=== PATIENT | female | born 1940 | race Caucasian/White ===

== ENCOUNTER 2016-03-30 05:58 | Observation (INO) | payer MEDICARE ==
[~2016-03-30] VITALS: Ht 172.7 cm; Wt 81.7 kg
[~2016-03-30 05:58] MED LIST: DIAZ10 PO; FISH1000 PO; FLUO10CA5 PO; FOSA70TA PO; LEVO-168 PO; MULT-135 PO; NAPR500 PO; NITR1CAP37 PO; OMEP20TA PO; RED RICE YEAST PO
[2016-03-30] MEDS ORDERED: METOPROLOL TARTRATE 25 MG TAB PO PRN (06:30)
[2016-03-30] MEDS ORDERED: INSULIN HUMAN REGULAR 1,000 UNITS/10 ML VIAL SQ PRN (06:30)
[2016-03-30] MEDS: SODIUM CHLORID 0.9% 500 ML IV SCH ×2 (06:30→22:10)
[2016-03-30] MEDS ORDERED: LEVO75TA3 PO (06:37)
[2016-03-30] MEDS ORDERED: AMLO2.5T PO (06:37)
[2016-03-30] MEDS ORDERED: HYDR-3516 PO (06:37)
[2016-03-30] MEDS ORDERED: GABA100C4 PO (06:37)
[2016-03-30] MEDS ORDERED: TRAM50TA PO (06:41)
[2016-03-30] MEDS ORDERED: PANT40TA3 PO (06:41)
[2016-03-30] MEDS ORDERED: TRAZ50TA12 PO (06:41)
[2016-03-30] MEDS: LACTATED RINGER'S 1000 ML IV SCH ×2 (06:42→22:10)
[2016-03-30] MEDS: CHLORHEXIDINE GLUCONATE 4% SOLN 120 ML BTL TOP SCH ×2 (06:45→12:25)
[2016-03-30] MEDS ORDERED: VANCOMYCIN 1000 MG/NS 250 ML (for <70 kg) IV SCH ×2 (06:45)
[2016-03-30] MEDS ORDERED: ceFAZolin 2 GM PREMIX 50 ML IV SCH (06:45)
[2016-03-30 06:47] VITALS: BP 155/90; PULSE 79; RESP 20; TEMP 97.7; O2SAT 97
[2016-03-30] MEDS ORDERED: GENTAMICIN SULFATE 80 MG/2 ML VIAL ONE (06:56)
[2016-03-30] MEDS ORDERED: FAMOTIDINE 20 MG/2 ML VIAL ONE (07:13)
[2016-03-30] MEDS ORDERED: ACETAMINOPHEN 1000 MG/100 ML VIAL IV ONE (07:13)
[2016-03-30] MEDS ORDERED: WALKER/ADULT/FO1 MIS (07:55)
[2016-03-30] MEDS ORDERED: HYDR-3288 PO (07:55)
[2016-03-30] MEDS ORDERED: XARE10TA PO (07:55)
--- NOTE | 2016-03-30 08:40 | PD.OP ---
cc: Basil Valencia MD Operative Report Date of Surgery: Mar 30, 2016 Preoperative Diagnosis: Right distal tibia fracture Postoperative Diagnosis: Procedure: Open reduction internal fixation right distal tibia Anesthesia: Gen. Surgeon: Basil Valencia Manager Automotive(s): KIM Morrow PA-C The surgical procedure was assisted by my physician retail loan originator assistant. My P.A. presence was necessary throughout this case for the manipulation and positioning of the surgical extremity. My P.A. was assisting me throughout the duration of this procedure. The skill set of a physician retail loan originator assistant was medically necessary to complete this procedure. During the surgical case the optics technical officer was working at the back table and the physician retail loan originator assistant was directly assisting me. Operation and Findings: Jany sustained an injury approximately 6 days ago resulting in displaced right distal tibia fracture. Patient was seen and evaluated preoperatively. The risk and benefits of surgery were discussed in depth with patient. All questions were answered. Skin was examined and found to be suitable for surgery. Patient had only mild swelling. Operative site was marked. She was brought to operating room. She is given IV sedation and GETA. Timeout procedure was performed. She received IV antibiotics. Right leg was prepped with alcohol followed by Hibiclens and draped usual sterile fashion. Procedure began with a 4 inch incision over the medial aspect of the right distal tibia. Subcutaneous tissues dissected with Bovie. Saphenous vein was protected throughout the procedure. Fracture was visualized. Fracture was cleaned with curettes. A laminar starbucks clerk was used to distract the fracture. A fracture tenaculum was used to reduce and compress the fracture. Multiple K wires were used to hold provisional fixation. Fluoroscopy confirmed appropriate alignment of fracture. A Synthes distal tibial plate was placed along the medial distal tibia. Plate was provisionally held the bone with K wires. 3.5 cortical screws were used to compress plate to bone. A 3.5 lag screw was used to compress fracture. Additional 2.7 locking screws were placed distally. Additional cortical screws were placed in the tibial shaft. All screws were predrilled and premeasured for appropriate length. Fluoroscopy confirmed excellent alignment of fracture. Incision was thoroughly irrigated. Subcutaneous tissues closed with 3-0 Vicryl. Skin was closed with 3-0 nylon. Patient was placed into a well molded well-padded splint. She was transferred to recovery in stable condition. Needle and sponge counts were correct. Basil Valencia MD Mar 30, 2016 08:40
[2016-03-30] MEDS ORDERED: MORPHINE SULFATE 4 MG/ML INJ IV PUSH PRN (08:45)
[2016-03-30] MEDS ORDERED: ONDANSETRON HCL 4 MG/2 ML VIAL IVP PRN (08:45)
[2016-03-30] MEDS ORDERED: Post-op Orders (for Pharmacy) MISC XX ONE (08:58)
[2016-03-30] MEDS ORDERED: fentaNYL CITRATE 250 MCG/5 ML AMP ONE (09:06)
[2016-03-30] MEDS ORDERED: DO NOT ADM ANY ANTICOAGULANT DRUGS XX PRN (09:30)
[2016-03-30] MEDS ORDERED: *morphine SULFATE 8 MG/ML PERIprocedure ONLY ONE (09:57)
--- NOTE | 2016-03-30 10:53 | EKG ---
Date Performed: 03/30/2016 Time Performed: 06:35:02 PTAGE: 75 years EKG: Sinus rhythm NORMAL ECG PREVIOUS TRACING : 12/24/2009 16.27 Compared to prior tracing no significant change DOCTOR: Buster Lyon Interpretating Date/Time 03/30/2016 10:52:29
[2016-03-30 12:03] VITALS: BP 128/74; PULSE 93; RESP 16; TEMP 96.4; O2SAT 98
[2016-03-30] MEDS: ACETAMINOPHEN/HYDROcodone 325 MG/7.5 MG TAB PO PRN ×2 (12:21→16:20)
--- NOTE | 2016-03-30 13:14 | RADRPT ---
EXAM DATE/TIME: 03/30/2016 08:21 [facility] COMPARISON: No previous studies available for comparison. INDICATIONS : ORIF right distal tibia. MEDICAL HISTORY : None. SURGICAL HISTORY : None. ENCOUNTER: Initial ACUITY: 1 day PAIN SCORE: Non-responsive. LOCATION: Right ankle. FINDINGS: Hardware is noted throughout the right distal tibia status post ORIF. The fracture fragments are well aligned. CONCLUSION: Status post ORIF of right distal tibial fracture with hardware in good position. Rohit Oakes MD on March 30, 2016 at 13:11 Board Certified Radiologist. This report was verified electronically.
[2016-03-30] MEDS: ceFAZolin 2 GM PREMIX 50 ML IV SCH ×2 (14:47→23:16)
[2016-03-30] MEDS ORDERED: LACTATED RINGER'S 1000 ML INJ 1,000 ML IV ONE (15:33)
[2016-03-30] MEDS ORDERED: PROPOFOL 200 MG/20 ML AMP IV ONE (15:33)
[2016-03-30] MEDS ORDERED: ONDANSETRON HCL 4 MG/2 ML VIAL IV PUSH ONE (15:33)
[2016-03-30] MEDS ORDERED: ePHEDrine/NS 50 MG/5 ML SYR IV ONE (15:33)
[2016-03-30 16:03] VITALS: O2SAT 98
[2016-03-30 16:09] VITALS: BP 142/67; PULSE 95; RESP 20; TEMP 96.3; O2SAT 97
[2016-03-30 20:00] VITALS: BP 100/58; PULSE 95; RESP 17; TEMP 99.2; O2SAT 93
[2016-03-30] MEDS: MAGNESIUM HYDROXIDE SUSP 30 ML CUP PO SCH (20:19)
[2016-03-30] MEDS: POLYETHYLENE GLYCOL 17 GM PKG PO SCH (20:19)
[2016-03-30] MEDS: RIVAROXABAN 10 MG TAB PO SCH (21:00)
[2016-03-31] VITALS (7 sets, daily range): BP systolic 130–159; BP diastolic 71–90; PULSE 68–92; RESP 14–20; TEMP 97–98.1; O2SAT 93–99
[2016-03-31] MEDS: ACETAMINOPHEN/HYDROcodone 325 MG/7.5 MG TAB PO PRN ×2 (01:52→11:04)
[2016-03-31] MEDS: ceFAZolin 2 GM PREMIX 50 ML IV SCH (06:05)
--- NOTE | 2016-03-31 06:50 | PD.ORT.PN ---
Subjective Subjective Remarks Resting comfortably with no new complaints Objective Vitals Vital Signs Date Time Temp Pulse Resp B/P Pulse Ox O2 Delivery O2 Flow Rate FiO2 03/31/16 04:00 98.1 84 18 142/79 94 03/31/16 00:00 97.0 92 18 130/71 93 03/30/16 20:00 99.2 95 17 100/58 93 03/30/16 16:09 96.3 95 20 142/67 97 03/30/16 16:03 98 21 03/30/16 12:03 96.4 93 16 128/74 98 03/30/16 11:30 98.1 88 12 145/85 96 Nasal Cannula 2 03/30/16 11:00 85 12 125/65 98 Nasal Cannula 2 03/30/16 10:30 83 12 142/88 99 Nasal Cannula 2 03/30/16 10:00 86 12 148/89 97 Nasal Cannula 2 03/30/16 09:45 77 12 142/79 99 Nasal Cannula 2 03/30/16 09:30 79 12 145/85 97 Nasal Cannula 2 03/30/16 09:15 79 12 143/81 98 Nasal Cannula 2 03/30/16 09:02 97.5 81 12 132/72 97 Nasal Cannula 2 03/30/16 06:47 97.7 79 20 155/90 97 I/O 03/30/16 03/30/16 03/30/16 03/31/16 03/31/16 03/31/16 07:00 15:00 23:00 07:00 15:00 23:00 Intake Total 1200 ml 960 ml 240 ml Output Total 50 ml Balance 1150 ml 960 ml 240 ml Intake Oral 960 ml 240 ml Other 1200 ml Output Estimated Blood Loss 50 ml # Voids 1 4 1 # Bowel Movements 1 0 Imaging Last 72 hours Impressions Tibia/Fibula X-Ray 03/30/16 0000 Signed Impressions: Service Date/Time: March 08:21 - CONCLUSION: Status post ORIF of right distal tibial fracture with hardware in good position. Rohit Oakes MD Objective Remarks Right lower extremity: Clean dry dressings intact. No pain at knee or hip. Distally intact sensation is able to move all toes. Good capillary refills Assessment & Plan Assessment and Plan Right distal tibia fracture status post open reduction internal fixation POD 1 Nonweightbearing right lower extremity Maintain splint Physical therapy assess home discharge versus rehabilitation If cleared for home discharge, discharge when cleared by PT on Sunday. If plan is to go to rehabilitation, discharge when bed available Follow-up with Dr. Valencia or MAIK in 2 weeks SAMPSON DUARTE PA-C Mar 31, 2016 06:50
[2016-03-31] MEDS ORDERED: WHEEMIS3 (06:51)
--- NOTE | 2016-03-31 06:52 | HHI.FF ---
Face to Face Verification Diagnosis: (1) Closed right tibial fracture Physical Therapy Gait training, Safety evaluation Right LE Weight Bearing: Non WB Left LE Weight Bearing: WB as tolerated I have seen patient Jany Guadarrama on 03/31/16. My clinical findings support the need for the requested home health care services because: Limited ability to care for self I certify that my clinical findings support that this patient is homebound because: Post-op weakness SAMPSON DUARTE PA-C Mar 31, 2016 06:52
[2016-03-31] MEDS: MAGNESIUM HYDROXIDE SUSP 30 ML CUP PO SCH ×2 (07:24→20:42)
[2016-03-31] MEDS: BACLOFEN 10 MG TAB PO PRN ×2 (14:38→23:39)
[2016-03-31] MEDS: CHLORHEXIDINE GLUCONATE 4% SOLN 120 ML BTL TOP SCH (20:42)
[2016-03-31] MEDS: LACTATED RINGER'S 1000 ML IV SCH (20:42)
[2016-03-31] MEDS: POLYETHYLENE GLYCOL 17 GM PKG PO SCH (20:42)
[2016-03-31] MEDS: RIVAROXABAN 10 MG TAB PO SCH (20:43)
[2016-04-01] VITALS: BP 119/78; PULSE 71; RESP 16; TEMP 97.5; O2SAT 96
[2016-04-01 05:01] VITALS: O2SAT 95
[2016-04-01] MEDS: MAGNESIUM HYDROXIDE SUSP 30 ML CUP PO SCH (07:58)
[2016-04-01 08:00] VITALS: BP 139/99; PULSE 87; RESP 18; TEMP 96.1; O2SAT 96
[2016-04-01] MEDS ORDERED: PILL SPLITTER OTHER PRN (10:15)
[2016-04-01] MEDS ORDERED: FLUoxetine HCL 10 MG CAP PO SCH (11:00)
[2016-04-01] MEDS ORDERED: amLODIPine BESYLATE 5 MG TAB PO SCH (11:00)
[2016-04-01] MEDS ORDERED: MULTIVITAMIN TAB PO SCH (11:00)
[2016-04-01] MEDS: GABAPENTIN 100 MG CAP PO SCH ×2 (11:06→17:24)
[2016-04-01 11:24] VITALS: O2SAT 97
[2016-04-01 12:00] VITALS: BP 156/91; PULSE 73; RESP 18; TEMP 97.2; O2SAT 98
[2016-04-01] MEDS ORDERED: PANTOPRAZOLE SOD 40 MG DELAYED RELEASE TAB PO SCH (12:00)
[2016-04-01] MEDS: ACETAMINOPHEN/HYDROcodone 325 MG/7.5 MG TAB PO PRN (12:27)
--- NOTE | 2016-04-01 14:33 | PD.ORT.PN ---
Subjective Subjective Remarks Patient comfortable. Pain controlled. Spouse at bedside. Objective Vitals Vital Signs Date Time Temp Pulse Resp B/P Pulse Ox O2 Delivery O2 Flow Rate FiO2 04/01/16 12:00 97.2 73 18 156/91 98 04/01/16 11:24 97 21 04/01/16 08:00 96.1 87 18 139/99 96 04/01/16 05:01 95 21 04/01/16 00:00 97.5 71 16 119/78 96 03/31/16 20:00 97.2 72 16 157/73 95 03/31/16 15:34 97.9 68 14 148/79 94 I/O 03/31/16 03/31/16 03/31/16 04/01/16 04/01/16 04/01/16 07:00 15:00 23:00 07:00 15:00 23:00 Intake Total 240 ml 360 ml 480 ml 360 ml Balance 240 ml 360 ml 480 ml 360 ml Intake Oral 240 ml 360 ml 480 ml 360 ml # Voids 1 2 4 3 # Bowel Movements 0 0 1 1 Imaging Last 72 hours Impressions Tibia/Fibula X-Ray 03/30/16 0000 Signed Impressions: Service Date/Time: March 08:21 - CONCLUSION: Status post ORIF of right distal tibial fracture with hardware in good position. Rohit Oakes MD Objective Remarks Right lower extremity: Clean dry dressings intact. No pain at knee or hip. Distally intact sensation is able to move all toes. Good capillary refills Assessment & Plan Assessment and Plan Right distal tibia fracture status post open reduction internal fixation POD 2 Nonweightbearing right lower extremity Maintain splint Physical therapy assess home discharge versus rehabilitation Orthopedically stable for discharge If cleared for home discharge, discharge when cleared by PT on Sunday. If plan is to go to rehabilitation, discharge when bed available Follow-up with Dr. Valencia or [place] in 2 weeks Renan Kumar Apr 01, 2016 14:32
[2016-04-01] MEDS: RIVAROXABAN 10 MG TAB PO SCH (17:24)
[2016-04-01] MEDS ORDERED: traZODone HCL 50 MG TAB PO SCH (21:00)
[2016-04-02] MEDS ORDERED: LEVOTHYROXINE SODIUM 75 MCG TAB PO SCH (06:00)
== END 2016-04-01 17:43 | disposition home health service (06) ==
LOC: HSDC 05:58 → HSDI 08:41 → N06A 11:57
PROVIDERS: ADMIT Orthopaedic Surgery Orthopaedic Trauma; ATTEND Orthopaedic Surgery Orthopaedic Trauma
DX: S82.301A Unspecified fracture of lower end of right tibia, initial encounter for closed fracture (principal); M16.10 Unilateral primary osteoarthritis, unspecified hip; M47.817 Spondylosis without myelopathy or radiculopathy, lumbosacral region; I12.9 Hypertensive chronic kidney disease with stage 1 through stage 4 chronic kidney disease, or unspecified chronic kidney disease; N18.9 Chronic kidney disease, unspecified; G62.9 Polyneuropathy, unspecified; R32 Unspecified urinary incontinence; E03.9 Hypothyroidism, unspecified; W18.30XA Fall on same level, unspecified, initial encounter; Y92.002 Bathroom of unspecified non-institutional (private) residence as the place of occurrence of the external cause; Z96.653 Presence of artificial knee joint, bilateral
CPT/HCPCS: 01480; 27827; 73590; 76000; 93005; 94150; 97110; 97116; 97163; 97530; C1713; G0378; J0131; J0690; J1580; J2270; J2405; J3010; J3370; J7050; J7120

== ENCOUNTER 2017-09-08 14:00 | Emergency (ER) | payer MEDICARE ==
[~2017-09-08] VITALS: Ht 170.2 cm; Wt 70.5 kg
[2017-09-08 14:00] VITALS: BP 120/70; PULSE 98; RESP 20; TEMP 98.7; O2SAT 94
[~2017-09-08 14:00] MED LIST changes: +AMLO2.5T PO; -DIAZ10 PO; +ESTR42.5V VAGINAL; -FISH1000 PO; -FLUO10CA5 PO; +FLUO10TA PO; -FOSA70TA PO; +GABA100C4 PO; +HYDR-3288 PO; -LEVO-168 PO; +LEVO75TA3 PO; -MULT-135 PO; +MULT1TAB PO; -NAPR500 PO; -NITR1CAP37 PO; -OMEP20TA PO; +PANT40TA3 PO; -RED RICE YEAST PO; +TRAZ50TA12 PO; +WALKER/ADULT/FO1 MIS; +WHEEMIS3; +XARE10TA PO
[2017-09-08] MEDS ORDERED: SODIUM CHLOR 0.9% 1000 ML INJ 1,000 ML IV ONE (14:10)
[2017-09-08] MEDS ORDERED: SODIUM CHLORIDE 0.9% FLUSH 10 ML FLUSH IVF PRN (14:15)
--- NOTE | 2017-09-08 14:17 | PD ---
HPI Chief Complaint: Presyncope Time Seen by Provider: 14:05 Travel History International Travel<30 days: No Contact w/Intl Traveler<30days: No Traveled to known affect area: No History of Present Illness HPI The patient was seen and examined in the presence of the nurse. This patient was out in the heat doing some yard work and weeding. She got dizzy and lightheaded. She tried to get to her walker but her legs gave out and she laid in the grass until a neighbor called 911. She did not lose consciousness. She had generalized weakness and lightheadedness. No chest pain or headache. Paramedics gave her half liter of saline prior to arrival and she does feel improved. Have been partially alleviated with IV fluid. No exacerbating factors. Symptom severity was moderate PFSH Past Medical History Arthritis: Yes Asthma: No Autoimmune Disease: No Blood Disorders: No Anxiety: No Depression: Yes Heart Rhythm Problems: Yes (PVC'S, BORN WITH IT) Cancer: No Cardiovascular Problems: No High Cholesterol: No Chemotherapy: No Chest Pain: No Congestive Heart Failure: No COPD: No Cerebrovascular Accident: No Diabetes: No Diminished Hearing: No Endocrine: Yes GERD: Yes Genitourinary: Yes (INCONTINENCE) Hepatitis: No Hiatal Hernia: No Hypertension: No Immune Disorder: No Kidney Stones: No Musculoskeletal: Yes Neurologic: Yes (IDIOPATHIC NEUROPATHY) Psychiatric: Yes (DEPRESSION) Reproductive: No Respiratory: No Migraines: No Myocardial Infarction: No Radiation Therapy: No Renal Failure: No Seizures: No Sickle Cell Disease: No Thyroid Disease: Yes (HYPOTHYROID) Ulcer: No Past Surgical History Abdominal Surgery: Yes (APPENDECTOMY) AICD: No Arteriovenous Shunt: No Cardiac Surgery: No Ear Surgery: No Endocrine Surgery: No Eye Surgery: No Genitourinary Surgery: No Gynecologic Surgery: Yes (1 OVARY REMOVED) Insulin Pump: No Joint Replacement: Yes (MESHA. KNEE, MESHA. SHOULDER) Oral Surgery: Yes (TONSILLECTOMY, MORE THAN ONCE REMOVED) Pacemaker: No Thoracic Surgery: No Social History Alcohol Use: Yes (2 DRINKS NIGHTLY) Tobacco Use: No Substance Use: No Allergies-Medications (Allergen,Severity, Reaction): Coded Allergies: fexofenadine (Verified Allergy, Intermediate, Tachycardia, 09/08/17) codeine (Verified Allergy, Mild, Rash, 09/08/17) Reported Meds & Prescriptions Reported Meds & Active Scripts Active [place] (Hydrocodone-Acetaminophen) 7.5-325 mg Tab 1 Tab PO Q4H PRN Reported Fluoxetine (Fluoxetine HCl) 10 Mg Tab 10 Mg PO TID Pantoprazole (Pantoprazole Sodium) 40 Mg Tab 40 Mg PO DAILY Gabapentin 100 Mg Cap 100 Mg PO QID Amlodipine (Amlodipine Besylate) 2.5 Mg Tab 2.5 Mg PO DAILY Levothyroxine (Levothyroxine Sodium) 75 Mcg Tab 75 Mcg PO DAILY Review of Systems General / Constitutional: No: Fever Eyes: No: Visual changes HENT: Positive: Lightheadedness, No: Headaches Cardiovascular: No: Chest Pain or Discomfort Respiratory: No: Shortness of Breath Gastrointestinal: No: Abdominal Pain Genitourinary: No: Dysuria Musculoskeletal: Positive: Weakness, No: Pain Skin: No Rash Neurologic: Positive: Weakness, Dizziness Psychiatric: No: Depression Endocrine: No: Polydipsia Hematologic/Lymphatic: No: Easy Bruising Physical Exam Narrative GENERAL: Well-nourished, well-developed patient in no apparent distress. SKIN: Focused skin assessment reveals no rash and nodules. Skin is Warm and dry. HEAD: Atraumatic. Normocephalic. EYES: Pupils equal and round. No scleral icterus. No injection or drainage. ENT: No nasal bleeding or discharge. Mucous membranes pink and moist. NECK: Trachea midline. No JVD. CARDIOVASCULAR: Regular rate and rhythm. No murmur appreciated. RESPIRATORY: No accessory muscle use. Clear to auscultation. Breath sounds equal bilaterally. GASTROINTESTINAL: Abdomen soft, non-tender, nondistended. Hepatic and splenic margins not palpable. MUSCULOSKELETAL: No obvious deformities. No clubbing. No cyanosis. No edema. NEUROLOGICAL: Awake and alert. No obvious cranial nerve deficits. Motor grossly within normal limits. Normal speech. PSYCHIATRIC: Appropriate mood and affect; insight and judgment normal. Data Data Last Documented VS Vital Signs Date Time Temp Pulse Resp B/P (MAP) Pulse Ox O2 Delivery O2 Flow Rate FiO2 09/08/17 14:00 94 Room Air 09/08/17 14:00 98 09/08/17 14:00 98.7 20 120/70 (87) Orders Orders Electrocardiogram (09/08/17 14:10) Basic Metabolic Panel (Bmp) (09/08/17 14:10) Complete Blood Count With Diff (09/08/17 14:10) Ecg Monitoring (09/08/17 14:10) Iv Access Insert/Monitor (09/08/17 14:10) Oximetry (09/08/17 14:10) Sodium Chloride 0.9% Flush (Ns Flush) (09/08/17 14:15) Sodium Chlor 0.9% 1000 Ml Inj (Ns 1000 M (09/08/17 14:10) Labs Laboratory Tests Test 09/08/17 14:15 White Blood Count 5.2 TH/MM3 Red Blood Count 3.69 MIL/MM3 Hemoglobin 11.8 GM/DL Hematocrit 33.6 % Mean Corpuscular Volume 90.9 FL Mean Corpuscular Hemoglobin 32.1 PG Mean Corpuscular Hemoglobin Concent 35.3 % Red Cell Distribution Width 13.5 % Platelet Count 219 TH/MM3 Mean Platelet Volume 7.9 FL Neutrophils (%) (Auto) 67.6 % Lymphocytes (%) (Auto) 16.0 % Monocytes (%) (Auto) 7.2 % Eosinophils (%) (Auto) 8.7 % Basophils (%) (Auto) 0.5 % Neutrophils # (Auto) 3.6 TH/MM3 Lymphocytes # (Auto) 0.8 TH/MM3 Monocytes # (Auto) 0.4 TH/MM3 Eosinophils # (Auto) 0.4 TH/MM3 Basophils # (Auto) 0.0 TH/MM3 CBC Comment DIFF FINAL Differential Comment Blood Urea Nitrogen 30 MG/DL Creatinine 1.50 MG/DL Random Glucose 124 MG/DL Calcium Level 9.3 MG/DL Sodium Level 142 MEQ/L Potassium Level 3.6 MEQ/L Chloride Level 110 MEQ/L Carbon Dioxide Level 23.0 MEQ/L Anion Gap 9 MEQ/L Estimat Glomerular Filtration Rate 34 ML/MIN [facility] Medical Decision Making Medical Screen Exam Complete: Yes Emergency Medical Condition: Yes Medical Record Reviewed: Yes Differential Diagnosis Vasovagal episode, dehydration, heat exhaustion, cardiac arrhythmia Narrative Course I have reviewed the patient's electronic medical record. IV placed and labs sent She is neurologically intact I gave her a liter of normal saline IV bolus I reviewed her EKG which shows sinus rhythm but no ectopy Extended cardiac monitoring reveals sinus rhythm without ectopy CBC is normal Metabolic studies show minor renal insufficiency On recheck the patient is feeling fine. No symptoms in the meantime Stable for outpatient follow-up Presentation consistent with some presyncope due to heat exhaustion Diagnosis Primary Impression: Pre-syncope Additional Impression: Heat exhaustion Qualified Codes: T67.5XXA - Heat exhaustion, unspecified, initial encounter Additional Instructions: The patient was advised to follow up with their physician and return if they worsen. Med/Other Pt SpecificInfo: Other Disposition: 01 DISCHARGE HOME Condition: Stable Aashish Conrad MD Sep 08, 2017 14:17
[2017-09-08 14:52] LABS: CALCIUM 9.3 MG/DL (8.5-10.1)
[2017-09-08 14:53] LABS: AUTOMATED NEUTROPHIL # 3.6 TH/MM3 (1.8-7.7); BASOPHIL % 0.5 % (0.0-2.0); EOSINOPHIL # 0.4 TH/MM3 (0-0.4); EOSINOPHIL % 8.7 % (0.0-4.0); HEMATOCRIT 33.6 % (35.0-46.0); HEMOGLOBIN 11.8 GM/DL (11.6-15.3); LYMPHOCYTE # 0.8 TH/MM3 (1.0-4.8); MEAN CELL VOLUME 90.9 FL (80.0-100.0); MEAN CORPUSCULAR HEMOGLOBIN 32.1 PG (27.0-34.0); MEAN CORPUSCULAR HGB CONC 35.3 % (32.0-36.0); MEAN PLATELET VOLUME 7.9 FL (7.0-11.0); MONO % 7.2 % (0.0-8.0); MONOCYTE # 0.4 TH/MM3 (0-0.9); NEUT % 67.6 % (16.0-70.0); PLATELET COUNT 219 TH/MM3 (150-450); RED BLOOD COUNT 3.69 MIL/MM3 (4.00-5.30); RED CELL DISTRIBUTION WIDTH 13.5 % (11.6-17.2); WHITE BLOOD COUNT 5.2 TH/MM3 (4.0-11.0)
[2017-09-08 14:56] LABS: CREATININE 1.5 MG/DL (0.50-1.00)
[2017-09-08 15:15] VITALS: BP 133/73; PULSE 90; RESP 18; O2SAT 99
[2017-09-08 15:50] VITALS: BP 141/80
--- NOTE | 2017-09-09 13:38 | EKG ---
Date Performed: 09/08/2017 Time Performed: 14:21:55 PTAGE: 77 years EKG: Sinus rhythm LOW QRS VOLTAGE IN PRECORDIAL LEADS INFERIOR MYOCARDIAL INFARCTION ABNORMAL ECG Since PREVIOUS TRACING , no significant change noted PREVIOUS TRACIN03/30/2016 06.35 DOCTOR: Buster Lyon Interpretating Date/Time 09/09/2017 13:37:53
== END 2017-09-08 16:10 | disposition home or self-care (01) ==
LOC: PHED 14:00
DX: R55 Syncope and collapse (principal); T67.5XXA Heat exhaustion, unspecified, initial encounter; R94.31 Abnormal electrocardiogram [ECG] [EKG]; R53.1 Weakness; Z88.5 Allergy status to narcotic agent
CPT/HCPCS: 80048; 85025; 93005; 96360; 99284; J7030